=== PATIENT | male | born 1945 | race Caucasian/White ===

== ENCOUNTER 2023-11-19 11:06 | Emergency (ER) | payer MEDICAID, MEDICARE ==
[2023-11-19 11:48] LABS: #Eosinphils 0.1 thou/uL (0.0-0.7); #Monocytes 0.4 thou/uL (0.11-0.59); #Neutrophils 3.7 thou/uL (1.40-6.50); %Basophils 0.5 % (0.0-1.0); %Eosinophils 1.8 % (0.0-10.0); %Monocytes 6.3 % (0.0-10.0); %Neutrophils 67.2 % (42.0-75.0); Mean Corpuscular HGB CONC 31.7 g/dL (32.0-36.0); Mean Corpuscular Hemoglobin 30.9 pg (27.0-31.0); Mean Corpuscular Volume 97.4 fl (78.0-98.0); Mean Platelet Volume 10.9 fL (7.4-10.4); Platelet Count 173 10x3/uL (130-400); RBC Distribution Width 12.5 % (11.5-14.5); Red Blood Cell (RBC) Count 4.21 mill/uL (4.70-6.10); White Blood Cell (WBC) Count 5.5 10x3/uL (4.8-10.8)
[2023-11-19 12:14] LABS: ALT (SGPT) 11 U/L (8-55); AST (SGOT) 12 U/L (5-34); Albumin 3.7 g/dL (3.4-4.8); Alkaline Phosphatase 68 U/L (40-110); Anion Gap 12 mmol/L (10-20); BUN (Urea Nitrogen) 23 mg/dL (8.4-25.7); Bilirubin, Total 0.4 mg/dL (0.2-1.2); Calc. Creatinine Clearance 0 mL/min (70-130); Calcium 9.2 mg/dL (7.8-10.44); Carbon Dioxide 26 mmol/L (23-31); Chloride 109 mmol/L (98-107); Estimated GFR 51; Globulin 2.8 g/dL (2.4-3.5); Glucose 99 mg/dL (83-110); Potassium 4.7 mmol/L (3.5-5.1); Protein, Total 6.5 g/dL (5.8-8.1); Sodium 142 mmol/L (136-145)
[2023-11-19] MEDS ORDERED: LevoFLOXacin 250 MG TAB ONE (14:02)
[2023-11-19] MEDS ORDERED: LevoFLOXacin 500 MG TAB ONE (14:02)
== END 2023-11-19 15:05 | disposition home or self-care (01) ==
LOC: ERS 11:06
DX: J18.9 Pneumonia, unspecified organism (principal); I10 Essential (primary) hypertension
CPT/HCPCS: 36415; 70450; 71045; 80053; 82140; 85025; 93005

== ENCOUNTER 2023-12-01 13:17 | Inpatient (IN) | payer MEDICARE, MEDICAID ==
[2023-12-01 15:01] LABS: #Eosinphils 0.1 thou/uL (0.0-0.7); #Monocytes 0.9 thou/uL (0.11-0.59); %Basophils 0.2 % (0.0-1.0); %Eosinophils 0.7 % (0.0-10.0); %Lymphocytes 7.8 % (21.0-51.0); %Monocytes 7.1 % (0.0-10.0); %Neutrophils 83.8 % (42.0-75.0); Hematocrit 40.6 % (42.0-52.0); Mean Corpuscular Hemoglobin 30.9 pg (27.0-31.0); Mean Corpuscular Volume 96.4 fl (78.0-98.0); Mean Platelet Volume 10.8 fL (7.4-10.4); Platelet Count 193 10x3/uL (130-400); RBC Distribution Width 12.8 % (11.5-14.5); Red Blood Cell (RBC) Count 4.21 mill/uL (4.70-6.10); White Blood Cell (WBC) Count 13.2 10x3/uL (4.8-10.8)
[2023-12-01 15:24] LABS: ALT (SGPT) 20 U/L (8-55); AST (SGOT) 19 U/L (5-34); Albumin 3.9 g/dL (3.4-4.8); Alkaline Phosphatase 75 U/L (40-110); Anion Gap 12 mmol/L (10-20); BUN (Urea Nitrogen) 22 mg/dL (8.4-25.7); Bilirubin, Total 0.3 mg/dL (0.2-1.2); Calc. Creatinine Clearance 0 mL/min (70-130); Calcium 9.2 mg/dL (7.8-10.44); Carbon Dioxide 25 mmol/L (23-31); Chloride 109 mmol/L (98-107); Estimated GFR 47; Globulin 2.5 g/dL (2.4-3.5); Glucose 106 mg/dL (83-110); Potassium 4.2 mmol/L (3.5-5.1); Protein, Total 6.4 g/dL (5.8-8.1); Sodium 142 mmol/L (136-145)
[2023-12-01 15:26] LABS: Troponin I 0.048 ng/mL (< 0.028)
[2023-12-01] MEDS ORDERED: Ondansetron ODT 4 MG TAB PO PRN (18:12)
[2023-12-01] MEDS ORDERED: Bisacodyl 10 MG SUPP PR PRN (18:12)
[2023-12-01] MEDS ORDERED: hydrALAZINE 20 MG/ML VIAL SLOW IVP PRN (18:12)
[2023-12-01] MEDS ORDERED: Acetaminophen 325 MG TAB PO PRN (18:12)
[2023-12-01] MEDS ORDERED: Ondansetron PF 4 MG/2 ML Vial IVP PRN (18:12)
[2023-12-01] MEDS ORDERED: Senokot S 8.6-50 MG TAB PO PRN (18:12)
[2023-12-01] MEDS ORDERED: Acetaminophen 650 MG Suppository PR PRN (18:12)
[2023-12-01 18:28] LABS: Troponin I 0.042 ng/mL (< 0.028)
[2023-12-01] MEDS ORDERED: Ipratropium/Albuterol 3 ML NEB NEB PRN (18:31)
[2023-12-01 18:41] LABS: #Eosinphils 0.1 thou/uL (0.0-0.7); #Monocytes 0.7 thou/uL (0.11-0.59); #Neutrophils 7.7 thou/uL (1.40-6.50); %Basophils 0.2 % (0.0-1.0); %Eosinophils 0.8 % (0.0-10.0); %Lymphocytes 15.3 % (21.0-51.0); %Monocytes 6.6 % (0.0-10.0); %Neutrophils 76.9 % (42.0-75.0); Hematocrit 37.9 % (42.0-52.0); Hemoglobin 12.1 g/dL (14.0-18.0); Mean Corpuscular HGB CONC 31.9 g/dL (32.0-36.0); Mean Corpuscular Hemoglobin 30.5 pg (27.0-31.0); Mean Corpuscular Volume 95.5 fl (78.0-98.0); Mean Platelet Volume 10.8 fL (7.4-10.4); Platelet Count 185 10x3/uL (130-400); RBC Distribution Width 12.6 % (11.5-14.5); Red Blood Cell (RBC) Count 3.97 mill/uL (4.70-6.10)
[2023-12-01] MEDS ORDERED: Aspirin Chewable 81 MG TAB ONE (18:44)
[2023-12-01 19:27] VITALS: BMI 17.5
[2023-12-01] MEDS ORDERED: Tamsulosin HCl 0.4 MG CAP ONE (21:42)
[2023-12-01] MEDS ORDERED: Atorvastatin Calcium 40 MG TAB ONE (21:42)
[2023-12-01] MEDS: Valproate Sodium 250 mg/5 ml UD Cup PO SCH (21:55)
[2023-12-01] MEDS: Atorvastatin Calcium 40 MG TAB PO SCH (21:55)
[2023-12-01] MEDS: Tamsulosin HCl 0.4 MG CAP PO SCH (21:55)
[2023-12-01] MEDS: Lithium Carbonate 150 MG CAP PO SCH (21:55)
[2023-12-01 22:17] LABS: Troponin I 0.042 ng/mL (< 0.028)
[2023-12-02 05:44] LABS: Hemoglobin A1c 4.8 % (4.0-6.0)
[2023-12-02] MEDS ORDERED: LevoFLOXacin 500 MG TAB PO SCH (06:00)
[2023-12-02 06:02] LABS: Anion Gap 12 mmol/L (10-20); BUN (Urea Nitrogen) 20 mg/dL (8.4-25.7); Calc. Creatinine Clearance 35 mL/min (70-130); Calcium 9.4 mg/dL (7.8-10.44); Carbon Dioxide 25 mmol/L (23-31); Cardiac Risk 2.8 (Less than 4.5); Chloride 114 mmol/L (98-107); Cholesterol 174 mg/dl (< 200 Desired); Estimated GFR 51; Glucose 96 mg/dL (83-110); HDL Cholesterol 63 mg/dL (>60 Neg Risk); LDL Cholesterol, Calculated 92 mg/dL; Potassium 4.2 mmol/L (3.5-5.1); Sodium 147 mmol/L (136-145); Triglycerides 96 mg/dL (Less than 150)
[2023-12-02] MEDS: Levothyroxine Sodium 75 MCG TAB PO SCH (08:07)
[2023-12-02] MEDS: carBAMazepine 200 MG TAB PO SCH ×2 (09:00→12:57)
[2023-12-02] MEDS: Ferrous Sulfate 325 MG TAB PO SCH ×2 (09:00→12:57)
[2023-12-02] MEDS: Enoxaparin 40 MG (0.4 mL) SYRINGE SC SCH (12:27)
[2023-12-02] MEDS: Aspirin 81 mg Enteric Coated Tablet PO SCH (12:28)
[2023-12-02] MEDS: Lithium Carbonate 150 MG CAP PO SCH (12:28)
[2023-12-02 13:53] LABS: Bilirubin Negative (Negative); Blood, Urine Negative (Negative); Clarity Clear (Clear); Glucose, Urine (Dipstick) Normal (Negative); Ketone, Urine 20 mg/dL (Negative); Leukocyte Negative Leu/uL (Negative); Nitrite Negative (Negative); Protein, Urine (Dipstick) Negative (Neg-Trace); RBC/HPF 0-3 HPF (0-3); Specific Gravity, Urine 1.024 (1.002-1.036); Squamous Epithelial 0-3 HPF (0-3); Urobilinogen Normal mg/dL (Less than 2); WBC/HPF 0-3 HPF (0-3); pH, Urine 5.5 (5.0-9.0)
[2023-12-02 13:54] LABS: Bacteria/HPF 1+ HPF (None Seen)
[2023-12-03 03:59] VITALS: TEMP 98.4
[2023-12-03 09:47] VITALS: BP 123/57
== END 2023-12-03 11:53 | disposition home or self-care (01) | DRG 947 ==
LOC: ERS 13:17 → ERHOLD 17:04 → 2NO 22:59 → OBSVTOIN 12-02 15:38
PROVIDERS: ADMIT Family Medicine; ATTEND Hospitalist
DX: R53.1 Weakness (principal); J18.9 Pneumonia, unspecified organism; Z68.1 Body mass index [BMI] 19.9 or less, adult; N40.0 Benign prostatic hyperplasia without lower urinary tract symptoms; I10 Essential (primary) hypertension; F41.9 Anxiety disorder, unspecified; F20.9 Schizophrenia, unspecified; F31.9 Bipolar disorder, unspecified; Z86.73 Personal history of transient ischemic attack (TIA), and cerebral infarction without residual deficits; E11.9 Type 2 diabetes mellitus without complications; E86.0 Dehydration; R63.6 Underweight; E78.5 Hyperlipidemia, unspecified; F03.90 Unspecified dementia, unspecified severity, without behavioral disturbance, psychotic disturbance, mood disturbance, and anxiety; G40.909 Epilepsy, unspecified, not intractable, without status epilepticus; Z79.899 Other long term (current) drug therapy; N18.30 Chronic kidney disease, stage 3 unspecified; F39 Unspecified mood [affective] disorder; Z66 Do not resuscitate
CPT/HCPCS: 36415; 36416; 70450; 70551; 71045; 80048; 80053; 80061; 80178; 81001; 83036; 84443; 84484; 85025; 87081; 93005; 93306; 93880; 94760; 96372; G0378; J1650

== ENCOUNTER 2024-09-17 12:52 | Inpatient (IN) | payer MEDICARE, MEDICAID ==
[2024-09-17 14:04] LABS: Bacteria/HPF None Seen HPF (None Seen); Bilirubin Negative (Negative); Blood, Urine Trace (Negative); CAUTI Indications for Culture Alt mental st,lethar; Clarity Clear (Clear); Glucose, Urine (Dipstick) Normal (Negative); Ketone, Urine Negative (Negative); Leukocyte 500 Leu/uL (Negative); Nitrite Negative (Negative); Protein, Urine (Dipstick) Negative (Neg-Trace); RBC/HPF 0-3 HPF (0-3); Specific Gravity, Urine 1.002 (1.002-1.036); Squamous Epithelial None Seen HPF (0-3); Urobilinogen Normal mg/dL (Less than 2); WBC/HPF Greater than 50 HPF (0-3)
[2024-09-17 14:05] LABS: Urine Culture Reflex Yes Yes
[2024-09-17 14:06] LABS: Troponin I Less than 0.010 ng/mL (< 0.028)
[2024-09-17 14:09] LABS: #Basophils 0.03 10x3/uL (0.0-0.2); %Basophils 0.4 % (0.0-1.0); %Eosinophils 2.1 % (0.0-10.0); %Lymphocytes 16.1 % (21.0-51.0); %Monocytes 6.2 % (0.0-10.0); %Neutrophils 74.9 % (42.0-75.0); Hematocrit 45.1 % (42.0-52.0); Hemoglobin 13.5 g/dL (14.0-18.0); Mean Corpuscular HGB CONC 29.9 g/dL (32.0-36.0); Mean Corpuscular Hemoglobin 30.7 pg (27.0-31.0); Mean Corpuscular Volume 102.5 fL (78.0-98.0); Mean Platelet Volume 11.7 fL (7.4-10.4); Platelet Count 117 10x3/uL (130-400); RBC Distribution Width 15.4 % (11.5-14.5)
[2024-09-17 14:12] LABS: ALT (SGPT) 45 U/L (8-55); AST (SGOT) 32 U/L (5-34); Albumin 3.4 g/dL (3.4-4.8); Alkaline Phosphatase 105 U/L (40-110); Anion Gap 12 mmol/L (10-20); BUN (Urea Nitrogen) 55 mg/dL (8.4-25.7); Bilirubin, Total 0.2 mg/dL (0.2-1.2); Calc. Creatinine Clearance 0 mL/min (70-130); Calcium 9.4 mg/dL (7.8-10.44); Carbon Dioxide 19 mmol/L (23-31); Chloride 137 mmol/L (98-107); Estimated GFR 26; Globulin 3.5 g/dL (2.4-3.5); Glucose 85 mg/dL (83-110); Protein, Total 6.9 g/dL (5.8-8.1); Sodium 162 mmol/L (136-145)
[2024-09-17 14:14] LABS: Anisocytosis SLIGHT = 6-15 cells HPF (0-5); Burr Cells SLIGHT = 2-5 cells HPF (0-1); Macrocytosis SLIGHT = 6-15 cells HPF (0-5); Platelet Adequacy Comment Platelets Decreased; Target Cells SLIGHT = 2-5 cells HPF (0-1); Tear Drops SLIGHT = 2-5 cells HPF (0-1)
[2024-09-17] MEDS ORDERED: Enoxaparin 60 MG (0.6 mL) SYRINGE ONE (15:07)
[2024-09-17] MEDS ORDERED: Sodium Chloride 0.9% 100 ML ONE (15:07)
[2024-09-17] MEDS ORDERED: cefTRIAXone (ROCEPHIN) 1 GM VIAL ONE (15:07)
[2024-09-17] MEDS ORDERED: Senokot S 8.6-50 MG TAB PO PRN (15:59)
[2024-09-17] MEDS ORDERED: Dextrose 5% in Water 1,000 ML IV SCH (16:00)
[2024-09-17] MEDS ORDERED: Acetaminophen 325 MG TAB PO PRN (16:00)
[2024-09-17 17:30] VITALS: BMI 18.9
[2024-09-17] MEDS ORDERED: Acetaminophen 325 MG Suppository PR PRN (17:44)
[2024-09-17] MEDS: Dextrose 5% in Water 1,000 ML IV SCH (18:01)
[2024-09-17] MEDS: Valproic Acid 250 mg/5 ml UD Cup PO SCH (20:27)
[2024-09-17] MEDS: carBAMazepine 200 MG TAB PO SCH (20:27)
[2024-09-17] MEDS: Heparin 5,000 UNITS/ML VIAL SC SCH (20:27)
[2024-09-17 21:18] LABS: Anion Gap 14 mmol/L (10-20); BUN (Urea Nitrogen) 53 mg/dL (8.4-25.7); Calc. Creatinine Clearance 22 mL/min (70-130); Calcium 9.2 mg/dL (7.8-10.44); Carbon Dioxide 14 mmol/L (23-31); Chloride 139 mmol/L (98-107); Estimated GFR 30; Glucose 135 mg/dL (83-110); Potassium 5.9 mmol/L (3.5-5.1); Sodium 161 mmol/L (136-145)
[2024-09-18 05:04] LABS: #Basophils 0.03 10x3/uL (0.0-0.2); %Basophils 0.4 % (0.0-1.0); %Eosinophils 1.9 % (0.0-10.0); %Lymphocytes 19.7 % (21.0-51.0); %Monocytes 4.9 % (0.0-10.0); %Neutrophils 72.8 % (42.0-75.0); Hemoglobin 12.9 g/dL (14.0-18.0); Mean Corpuscular HGB CONC 29.3 g/dL (32.0-36.0); Mean Corpuscular Hemoglobin 30.8 pg (27.0-31.0); Mean Platelet Volume 12.5 fL (7.4-10.4); Platelet Count 115 10x3/uL (130-400); RBC Distribution Width 15.5 % (11.5-14.5); Red Blood Cell (RBC) Count 4.19 mill/uL (4.70-6.10)
[2024-09-18 05:16] LABS: Anion Gap 12 mmol/L (10-20); BUN (Urea Nitrogen) 51 mg/dL (8.4-25.7); Calc. Creatinine Clearance 22 mL/min (70-130); Carbon Dioxide 17 mmol/L (23-31); Chloride 142 mmol/L (98-107); Estimated GFR 30; Glucose 103 mg/dL (83-110); Potassium 5.2 mmol/L (3.5-5.1); Sodium 166 mmol/L (136-145)
[2024-09-18] MEDS: FLU (Fluad Triv) TS24-25 (65UP)/MF59C/PF 45 MCG/0.5 ML Syringe IM ONE (08:24)
[2024-09-18] MEDS: Aspirin 300 MG Suppository PR SCH (08:24)
[2024-09-18] MEDS: Dextrose 5% in Water 1,000 ML IV SCH (09:16)
[2024-09-18] MEDS: Pantoprazole 40 MG VIAL IVP SCH (09:56)
[2024-09-18 10:10] LABS: Anion Gap 10 mmol/L (10-20); BUN (Urea Nitrogen) 47 mg/dL (8.4-25.7); Calc. Creatinine Clearance 23 mL/min (70-130); Calcium 9.2 mg/dL (7.8-10.44); Carbon Dioxide 19 mmol/L (23-31); Chloride 141 mmol/L (98-107); Estimated GFR 32; Glucose 108 mg/dL (83-110); Potassium 5.7 mmol/L (3.5-5.1); Sodium 164 mmol/L (136-145)
[2024-09-18 14:38] VITALS: BMI 18.6
[2024-09-18] MEDS: cefTRIAXone\\ROCEPHIN 1 GM in Sodium Chloride 0.9% 100 ML IVPB SCH (16:02)
[2024-09-18 20:35] LABS: Anion Gap 10 mmol/L (10-20); BUN (Urea Nitrogen) 44 mg/dL (8.4-25.7); Calc. Creatinine Clearance 24 mL/min (70-130); Calcium 9.3 mg/dL (7.8-10.44); Carbon Dioxide 21 mmol/L (23-31); Chloride 138 mmol/L (98-107); Estimated GFR 33; Glucose 116 mg/dL (83-110); Potassium 5.9 mmol/L (3.5-5.1); Sodium 163 mmol/L (136-145)
[2024-09-19] MEDS ORDERED: cefTRIAXone (ROCEPHIN) 1 GM VIAL ONE (15:00)
[2024-09-19] MEDS ORDERED: LOKELMA 10 GM PACKET ONE (18:00)
[2024-09-19] MEDS ORDERED: carBAMazepine 200 MG TAB ONE (20:16)
[2024-09-19] MEDS ORDERED: Valproic Acid 250 mg/5 ml UD Cup ONE (20:16)
[2024-09-19] MEDS ORDERED: Dextrose 5% in Water 1,000 ML BAG ONE (20:16)
[2024-09-20] MEDS ORDERED: Dextrose 5% in Water 1,000 ML BAG ONE ×2 (04:30→11:46)
[2024-09-20] MEDS ORDERED: Levothyroxine Sodium 75 MCG TAB ONE (05:31)
[2024-09-20] MEDS ORDERED: Pantoprazole DR 40 MG TAB ONE (08:31)
[2024-09-20] MEDS ORDERED: carBAMazepine 200 MG TAB ONE ×2 (08:31→21:26)
[2024-09-20] MEDS ORDERED: cefTRIAXone (ROCEPHIN) 1 GM VIAL ONE (15:56)
[2024-09-20] MEDS ORDERED: Valproic Acid 250 mg/5 ml UD Cup ONE (21:26)
[2024-09-21] MEDS ORDERED: Dextrose 5% in Water 1,000 ML BAG ONE ×2 (01:45→08:30)
[2024-09-21 05:34] LABS: Anion Gap 11 mmol/L (10-20); BUN (Urea Nitrogen) 27 mg/dL (8.4-25.7); Calc. Creatinine Clearance 26 mL/min (70-130); Calcium 8.3 mg/dL (7.8-10.44); Carbon Dioxide 20 mmol/L (23-31); Chloride 123 mmol/L (98-107); Estimated GFR 36; Glucose 111 mg/dL (83-110); Potassium 4.3 mmol/L (3.5-5.1); Sodium 150 mmol/L (136-145)
[2024-09-21] MEDS: Levothyroxine Sodium 75 MCG TAB ONE (05:49)
[2024-09-21] MEDS: Levothyroxine Sodium 100 MCG TAB PO SCH (05:49)
[2024-09-21] MEDS ORDERED: Pantoprazole DR 40 MG TAB ONE (10:20)
[2024-09-21] MEDS ORDERED: carBAMazepine 200 MG TAB ONE (10:20)
[2024-09-21] MEDS: Multivitamin W/ Minerals 1 TAB PO SCH (11:46)
[2024-09-21] MEDS: Ferrous Sulfate 325 MG TAB PO SCH (11:46)
[2024-09-21 11:51] LABS: Anion Gap 12 mmol/L (10-20); BUN (Urea Nitrogen) 29 mg/dL (8.4-25.7); Calc. Creatinine Clearance 26 mL/min (70-130); Calcium 8.5 mg/dL (7.8-10.44); Carbon Dioxide 19 mmol/L (23-31); Chloride 125 mmol/L (98-107); Estimated GFR 36; Glucose 106 mg/dL (83-110); Potassium 4.1 mmol/L (3.5-5.1); Sodium 152 mmol/L (136-145)
[2024-09-21] MEDS: Dextrose 5% in Water 1,000 ML IV SCH (12:49)
[2024-09-21 19:04] LABS: Hematocrit 41.7 % (42.0-52.0); Hemoglobin 12.8 g/dL (14.0-18.0); Mean Corpuscular HGB CONC 30.7 g/dL (32.0-36.0); Mean Corpuscular Hemoglobin 30.5 pg (27.0-31.0); Mean Corpuscular Volume 99.3 fL (78.0-98.0); Mean Platelet Volume 12.9 fL (7.4-10.4); Platelet Count 103 10x3/uL (130-400); RBC Distribution Width 14.6 % (11.5-14.5)
[2024-09-21] MEDS ORDERED: Valproic Acid 250 MG CAP PO SCH (21:00)
[2024-09-21] MEDS: Atorvastatin Calcium 20 MG TAB PO SCH (21:34)
[2024-09-21] MEDS: Valproic Acid 250 mg/5 ml UD Cup PO SCH (21:35)
[2024-09-22] MEDS: Levothyroxine Sodium 75 MCG TAB PO SCH (06:28)
[2024-09-22] MEDS: Levothyroxine Sodium 75 MCG TAB ONE (06:29)
[2024-09-22 07:42] LABS: Anion Gap 11 mmol/L (10-20); BUN (Urea Nitrogen) 24 mg/dL (8.4-25.7); Calc. Creatinine Clearance 27 mL/min (70-130); Calcium 8.1 mg/dL (7.8-10.44); Carbon Dioxide 18 mmol/L (23-31); Chloride 125 mmol/L (98-107); Estimated GFR 38; Glucose 85 mg/dL (83-110); Potassium 4.2 mmol/L (3.5-5.1); Sodium 150 mmol/L (136-145)
[2024-09-22] MEDS: Cholecalciferol 1,000 UNITS (25 MCG) TAB PO SCH (08:28)
[2024-09-23 10:39] LABS: Hematocrit 41.6 % (42.0-52.0); Hemoglobin 13.4 g/dL (14.0-18.0); Mean Corpuscular Hemoglobin 30.9 pg (27.0-31.0); Mean Corpuscular Volume 96.8 fL (78.0-98.0); Platelet Count 109 10x3/uL (130-400); RBC Distribution Width 15.3 % (11.5-14.5); Red Blood Cell (RBC) Count 4.33 mill/uL (4.70-6.10)
[2024-09-23 10:48] LABS: Anion Gap 13 mmol/L (10-20); BUN (Urea Nitrogen) 31 mg/dL (8.4-25.7); Calc. Creatinine Clearance 26 mL/min (70-130); Calcium 8.6 mg/dL (7.8-10.44); Carbon Dioxide 19 mmol/L (23-31); Chloride 124 mmol/L (98-107); Estimated GFR 38; Glucose 115 mg/dL (83-110); Potassium 3.9 mmol/L (3.5-5.1); Sodium 152 mmol/L (136-145)
[2024-09-23] MEDS: Dextrose 5% in Water 1,000 ML IV SCH ×2 (11:59→16:44)
[2024-09-24] MEDS: Ziprasidone 20 MG VIAL IM SCH (01:15)
[2024-09-24] MEDS: Sterile Water 10 ML VIAL FS SCH (01:15)
[2024-09-24] MEDS: Levothyroxine Sodium 75 MCG TAB ONE (05:29)
[2024-09-24 05:54] LABS: Anion Gap 12 mmol/L (10-20); BUN (Urea Nitrogen) 29 mg/dL (8.4-25.7); Calc. Creatinine Clearance 27 mL/min (70-130); Calcium 8.6 mg/dL (7.8-10.44); Carbon Dioxide 21 mmol/L (23-31); Chloride 120 mmol/L (98-107); Estimated GFR 38; Glucose 142 mg/dL (83-110); Potassium 3.8 mmol/L (3.5-5.1); Sodium 149 mmol/L (136-145)
[2024-09-24] MEDS: Desmopressin Acetate 0.01% Nasal Solution NASAL SCH (10:59)
[2024-09-24] MEDS: Dextrose 5% in Water 1,000 ML IV SCH (12:50)
[2024-09-25 06:17] LABS: Hematocrit 41.5 % (42.0-52.0); Hemoglobin 12.7 g/dL (14.0-18.0); Mean Corpuscular HGB CONC 30.6 g/dL (32.0-36.0); Mean Corpuscular Hemoglobin 30.7 pg (27.0-31.0); Mean Corpuscular Volume 100.2 fL (78.0-98.0); Mean Platelet Volume 12.4 fL (7.4-10.4); Platelet Count 138 10x3/uL (130-400); RBC Distribution Width 14.9 % (11.5-14.5); Red Blood Cell (RBC) Count 4.14 mill/uL (4.70-6.10)
[2024-09-25 06:39] LABS: Anion Gap 11 mmol/L (10-20); BUN (Urea Nitrogen) 24 mg/dL (8.4-25.7); Calc. Creatinine Clearance 25 mL/min (70-130); Carbon Dioxide 22 mmol/L (23-31); Chloride 117 mmol/L (98-107); Estimated GFR 35; Glucose 114 mg/dL (83-110); Potassium 4.3 mmol/L (3.5-5.1); Sodium 146 mmol/L (136-145)
[2024-09-26 06:17] LABS: Anion Gap 14 mmol/L (10-20); BUN (Urea Nitrogen) 27 mg/dL (8.4-25.7); Calc. Creatinine Clearance 27 mL/min (70-130); Calcium 8.8 mg/dL (7.8-10.44); Carbon Dioxide 21 mmol/L (23-31); Chloride 118 mmol/L (98-107); Estimated GFR 40; Glucose 101 mg/dL (83-110); Potassium 3.8 mmol/L (3.5-5.1); Sodium 149 mmol/L (136-145)
[2024-09-26] MEDS: Desmopressin Acetate 0.01% Nasal Solution NASAL SCH (10:10)
[2024-09-27 10:26] LABS: Anion Gap 12 mmol/L (10-20); BUN (Urea Nitrogen) 24 mg/dL (8.4-25.7); Calc. Creatinine Clearance 31 mL/min (70-130); Calcium 8.6 mg/dL (7.8-10.44); Carbon Dioxide 23 mmol/L (23-31); Chloride 116 mmol/L (98-107); Estimated GFR 46; Glucose 105 mg/dL (83-110); Potassium 3.7 mmol/L (3.5-5.1); Sodium 147 mmol/L (136-145)
[2024-09-28 05:13] LABS: Anion Gap 12 mmol/L (10-20); BUN (Urea Nitrogen) 33 mg/dL (8.4-25.7); Calc. Creatinine Clearance 31 mL/min (70-130); Calcium 8.8 mg/dL (7.8-10.44); Carbon Dioxide 23 mmol/L (23-31); Chloride 115 mmol/L (98-107); Estimated GFR 46; Glucose 101 mg/dL (83-110); Potassium 3.5 mmol/L (3.5-5.1); Sodium 146 mmol/L (136-145)
[2024-09-28] MEDS: Tamsulosin HCl 0.4 MG CAP PO SCH (13:52)
[2024-09-29 05:26] LABS: Anion Gap 11 mmol/L (10-20); BUN (Urea Nitrogen) 34 mg/dL (8.4-25.7); Calc. Creatinine Clearance 35 mL/min (70-130); Calcium 8.5 mg/dL (7.8-10.44); Carbon Dioxide 21 mmol/L (23-31); Chloride 116 mmol/L (98-107); Estimated GFR 53; Glucose 127 mg/dL (83-110); Potassium 3.4 mmol/L (3.5-5.1); Sodium 145 mmol/L (136-145)
[2024-09-29] MEDS: Potassium Bicarbonate/Cit Ac 20 MEQ TAB PO SCH (09:13)
[2024-09-29] MEDS: Tamsulosin HCl 0.4 MG CAP PO SCH (09:14)
[2024-09-29] MEDS: Dextrose 5% in Water 500 ML IV SCH (17:07)
[2024-09-30] MEDS: Dextrose 5% in Water 1,000 ML IV SCH ×2 (02:39→10:39)
[2024-09-30 05:01] LABS: Phosphorus 3.1 mg/dL (2.3-4.7)
[2024-09-30 05:08] LABS: Anion Gap 11 mmol/L (10-20); BUN (Urea Nitrogen) 28 mg/dL (8.4-25.7); Calc. Creatinine Clearance 37 mL/min (70-130); Carbon Dioxide 25 mmol/L (23-31); Chloride 109 mmol/L (98-107); Estimated GFR 56; Glucose 103 mg/dL (83-110); Magnesium 1.7 mg/dL (1.6-2.6); Sodium 141 mmol/L (136-145)
[2024-10-01 05:16] LABS: Anion Gap 15 mmol/L (10-20); BUN (Urea Nitrogen) 31 mg/dL (8.4-25.7); Calc. Creatinine Clearance 40 mL/min (70-130); Calcium 8.6 mg/dL (7.8-10.44); Carbon Dioxide 22 mmol/L (23-31); Chloride 109 mmol/L (98-107); Estimated GFR 63; Glucose 135 mg/dL (83-110); Potassium 3.8 mmol/L (3.5-5.1); Sodium 142 mmol/L (136-145)
[2024-10-01 05:56] LABS: Sodium 158 mmol/L (136-145)
[2024-10-01 05:57] LABS: Anion Gap 14 mmol/L (10-20); BUN (Urea Nitrogen) 39 mg/dL (8.4-25.7); Calc. Creatinine Clearance 21 mL/min (70-130); Carbon Dioxide 14 mmol/L (23-31); Chloride 137 mmol/L (98-107); Estimated GFR 29; Potassium 6.6 mmol/L (3.5-5.1)
[2024-10-01 05:58] LABS: Calcium 9.2 mg/dL (7.6-10.4); Glucose 101 mg/dL (83-110)
[2024-10-01 05:59] LABS: Critical Call Chemistry NUR.BJNI @1334 BY BG
[2024-10-01 06:00] LABS: Anion Gap 10 mmol/L (10-20); BUN (Urea Nitrogen) 38 mg/dL (8.4-25.7); Calc. Creatinine Clearance 24 mL/min (70-130); Calcium 8.7 mg/dL (7.6-10.4); Carbon Dioxide 20 mmol/L (23-31); Chloride 134 mmol/L (98-107); Estimated GFR 34; Glucose 126 mg/dL (83-110); Potassium 4.8 mmol/L (3.5-5.1); Sodium 159 mmol/L (136-145)
[2024-10-02 04:35] LABS: #Basophils 0.06 10x3/uL (0.0-0.2); %Basophils 0.6 % (0.0-1.0); %Eosinophils 4.4 % (0.0-10.0); %Monocytes 6.2 % (0.0-10.0); %Neutrophils 68.2 % (42.0-75.0); Hematocrit 38.6 % (42.0-52.0); Mean Corpuscular HGB CONC 31.1 g/dL (32.0-36.0); Mean Corpuscular Hemoglobin 30.4 pg (27.0-31.0); Mean Corpuscular Volume 97.7 fL (78.0-98.0); Mean Platelet Volume 11.5 fL (7.4-10.4); Platelet Count 224 10x3/uL (130-400); RBC Distribution Width 14.7 % (11.5-14.5); Red Blood Cell (RBC) Count 3.95 mill/uL (4.70-6.10)
[2024-10-02 04:53] LABS: Anion Gap 13 mmol/L (10-20); BUN (Urea Nitrogen) 35 mg/dL (8.4-25.7); Calc. Creatinine Clearance 41 mL/min (70-130); Calcium 8.7 mg/dL (7.8-10.44); Carbon Dioxide 24 mmol/L (23-31); Chloride 110 mmol/L (98-107); Estimated GFR 63; Glucose 88 mg/dL (83-110); Potassium 4.3 mmol/L (3.5-5.1); Sodium 143 mmol/L (136-145)
[2024-10-03 09:08] VITALS: TEMP 97.5
[2024-10-03 18:21] VITALS: BP 119/76
== END 2024-10-03 19:07 | DRG 643 ==
LOC: ERS 12:52 → IMCU/EMU 15:40 → MSONC 09-18 19:16
PROVIDERS: ADMIT Internal Medicine; ATTEND Hospitalist
DX: E23.2 Diabetes insipidus (principal); E43 Unspecified severe protein-calorie malnutrition; G93.41 Metabolic encephalopathy; N17.9 Acute kidney failure, unspecified; I82.402 Acute embolism and thrombosis of unspecified deep veins of left lower extremity; F84.0 Autistic disorder; N13.8 Other obstructive and reflux uropathy; G40.909 Epilepsy, unspecified, not intractable, without status epilepticus; E78.5 Hyperlipidemia, unspecified; N40.0 Benign prostatic hyperplasia without lower urinary tract symptoms; I12.9 Hypertensive chronic kidney disease with stage 1 through stage 4 chronic kidney disease, or unspecified chronic kidney disease; E03.9 Hypothyroidism, unspecified; F41.9 Anxiety disorder, unspecified; N18.30 Chronic kidney disease, stage 3 unspecified; F31.9 Bipolar disorder, unspecified; E86.0 Dehydration; N13.9 Obstructive and reflux uropathy, unspecified; N40.1 Benign prostatic hyperplasia with lower urinary tract symptoms; R33.8 Other retention of urine; F03.90 Unspecified dementia, unspecified severity, without behavioral disturbance, psychotic disturbance, mood disturbance, and anxiety; Z79.899 Other long term (current) drug therapy; Z68.28 Body mass index [BMI] 28.0-28.9, adult
CPT/HCPCS: 36415; 36416; 51701; 70450; 72125; 80048; 80053; 81001; 83605; 83735; 84100; 84443; 84484; 85025; 85027; 87040; 87086; 93005; 94760; 96365; 96375; J0696; J1644; J1650; J2470; J3486; J7070

== ENCOUNTER 2025-03-08 23:11 | Emergency (ER) | payer MEDICARE, OTHER ==
[2025-03-08 23:38] LABS: #Basophils 0.03 10x3/uL (0.0-0.2); %Basophils 0.3 % (0.0-1.0); %Eosinophils 1.8 % (0.0-10.0); %Monocytes 6.6 % (0.0-10.0); %Neutrophils 77.1 % (42.0-75.0); Hematocrit 35.4 % (42.0-52.0); Hemoglobin 11.3 g/dL (14.0-18.0); Mean Corpuscular HGB CONC 31.9 g/dL (32.0-36.0); Mean Corpuscular Hemoglobin 29.2 pg (27.0-31.0); Mean Corpuscular Volume 91.5 fL (78.0-98.0); Mean Platelet Volume 10.6 fL (7.4-10.4); Platelet Count 212 10x3/uL (130-400); RBC Distribution Width 15.2 % (11.5-14.5); Red Blood Cell (RBC) Count 3.87 mill/uL (4.70-6.10)
[2025-03-08 23:51] LABS: ALT (SGPT) 11 U/L (Less than 45); AST (SGOT) 17 U/L (11-34); Albumin 3.2 g/dL (3.1-4.5); Alkaline Phosphatase 98 U/L (40-110); Anion Gap 14 mmol/L (10-20); BUN (Urea Nitrogen) 29 mg/dL (8.4-25.7); Bilirubin, Total 0.1 mg/dL (0.3-1.2); Calc. Creatinine Clearance 0 mL/min (70-130); Calcium 8.9 mg/dL (7.8-10.44); Carbon Dioxide 23 mmol/L (23-31); Chloride 115 mmol/L (98-107); Estimated GFR 41; Globulin 3.3 g/dL (2.4-3.5); Glucose 100 mg/dL (83-110); Potassium 4.3 mmol/L (3.5-5.1); Protein, Total 6.5 g/dL (5.8-8.1); Sodium 148 mmol/L (136-145)
[2025-03-08] MEDS ORDERED: Boostrix 0.5 ML (Tdap) VIAL (>/=7 yrs of age) ONE (23:52)
[2025-03-08] MEDS ORDERED: Lidocaine 1% w/Epinephrine 1:100K 20 ML VIAL ONE (23:52)
[2025-03-08 23:55] LABS: Troponin I 0.021 ng/mL (< 0.028)
[2025-03-09 01:23] LABS: Bacteria/HPF 1+ HPF (None Seen); Bilirubin Negative (Negative); Blood, Urine Negative (Negative); CAUTI Indications for Culture Dysuria,urgency,freq; Clarity Clear (Clear); Glucose, Urine (Dipstick) Normal (Negative); Ketone, Urine Negative (Negative); Leukocyte 75 Leu/uL (Negative); Nitrite Negative (Negative); Protein, Urine (Dipstick) Negative (Neg-Trace); Specific Gravity, Urine 1.009 (1.002-1.036); Squamous Epithelial None Seen HPF (0-3); Urobilinogen Normal mg/dL (Less than 2); pH, Urine 7.5 (5.0-9.0)
[2025-03-09 01:24] LABS: Urine Culture Reflex No No
== END 2025-03-09 02:57 ==
LOC: ERS 23:11
DX: S01.81XA Laceration without foreign body of other part of head, initial encounter (principal); S41.112A Laceration without foreign body of left upper arm, initial encounter; Z23 Encounter for immunization; W06.XXXA Fall from bed, initial encounter; Z79.899 Other long term (current) drug therapy
CPT/HCPCS: 12013; 70450; 70486; 72125; 80053; 81001; 83735; 83880; 84484; 85025; 87077; 87086; 87186; 90471; 90715; 93005; G0390